=== PATIENT | male | born 1955 | race Caucasian/White ===

== ENCOUNTER 2016-11-08 06:35 | Day surgery (SDC) | payer BC ==
[2016-11-08] MEDS ORDERED: Sodium Chloride 0.9% 1,000 ML IV SCH (07:00)
[2016-11-08] MEDS ORDERED: Midazolam 1 MG/ML 2 ML SDV ONE (07:15)
[2016-11-08] MEDS ORDERED: fentaNYL 100 MCG/2 ML SDV ONE (07:15)
[2016-11-08] MEDS ORDERED: Propofol 200 MG/20 ML SDV ONE ×2 (07:15→08:21)
[2016-11-08 09:27] VITALS: BP 152/86
--- NOTE | 2016-11-11 07:31 | OR ---
DATE OF PROCEDURE: 11/08/2016 PROCEDURE: Colonoscopy. FINDINGS: 1. Ascending colon polyp, 5 mm, completely removed using cold biopsy forceps. 2. Transverse colon polyps #1, 5 mm, completely removed using cold biopsy forceps. 3. Ascending colon polyp #2, approximately 5 mm, completely removed using cold biopsy forceps. 4. Descending colon polyp, approximately 5 mm, completely removed using cold biopsy forceps. 5. Diverticulosis, mild, limited to the sigmoid colon. COMPLICATIONS: None. SAFETY DEPOSIT SUPERVISOR: None. PREOPERATIVE DIAGNOSIS: Screening colonoscopy. POSTOPERATIVE DIAGNOSIS: Screening colonoscopy. RISKS: Risks, benefits, alternatives, and limitations, including, but not limited to infection, bleeding, and perforation were explained to the patient and wished to proceed. ANESTHESIA: MAC. PROCEDURE IN DETAIL: The patient was placed in left lateral decubitus position. Digital rectal exam was performed without abnormality. The scope was introduced and advanced atraumatically to the cecal valve. The scope was brought back through the ascending, transverse, descending colon, and retroflexed. The aforementioned polyps were all identified and completely removed using cold biopsy forceps. The diverticulosis would be described as mild and limited to sigmoid colon only. There was no old or new blood. The patient required repositioning due to tortuous colon. The patient tolerated the procedure well. Bao Gusman MD /[id number]
== END 2016-11-08 09:40 | disposition home or self-care (01) ==
LOC: JP.SDS 06:35
PROVIDERS: ATTEND Surgery
DX: Z12.11 Encounter for screening for malignant neoplasm of colon (principal); D12.2 Benign neoplasm of ascending colon; D12.3 Benign neoplasm of transverse colon; D12.4 Benign neoplasm of descending colon; K57.30 Diverticulosis of large intestine without perforation or abscess without bleeding; Z88.8 Allergy status to other drugs, medicaments and biological substances; Z91.09 Other allergy status, other than to drugs and biological substances; I10 Essential (primary) hypertension; I25.10 Atherosclerotic heart disease of native coronary artery without angina pectoris; E03.9 Hypothyroidism, unspecified; E11.9 Type 2 diabetes mellitus without complications; Z79.899 Other long term (current) drug therapy
CPT/HCPCS: 45380; J2250; J2704; J3010; J7040; 88305

== ENCOUNTER 2017-10-31 07:49 | Day surgery (SDC) | payer BC ==
[2017-10-31] MEDS ORDERED: Lactated Ringers 1,000 ML IV SCH ×2 (08:05→08:10)
[2017-10-31] MEDS ORDERED: fentaNYL 100 MCG/2 ML SDV ONE (09:20)
[2017-10-31] MEDS ORDERED: Midazolam 1 MG/ML 2 ML SDV ONE (09:20)
[2017-10-31] MEDS ORDERED: Propofol 200 MG/20 ML SDV ONE ×2 (09:20→10:17)
[2017-10-31 11:26] VITALS: BP 138/82
--- NOTE | 2017-10-31 13:29 | OR ---
DATE OF PROCEDURE: 10/31/2017 PREOPERATIVE DIAGNOSIS: History of multiple tubular adenomas. POSTOPERATIVE DIAGNOSES: Diverticulosis, 4 colon polyps removed and sent to the laboratory as 3 specimens, and history of tubular adenomas. PROCEDURES: Colonoscopy to the cecum with biopsy resection and snare cautery polypectomy. SURGEON: Maxime Em MD ANESTHESIA: IV anesthesia with monitored anesthesia care. INDICATION: This 62-year-old white male is referred for a colonoscopy because of a history of tubular adenomas. He had multiple tubular adenomas removed about a year ago. I counseled him for the procedure, including risks and alternatives, and he gave his informed consent to proceed. DESCRIPTION OF PROCEDURE: The patient was placed in the left lateral decubitus position. IV anesthesia was administered by the Anesthesia service. Time-out was held. A rectal exam was performed, which was unremarkable. The flexible video Olympus colonoscope was introduced through his anus, up his rectum, and out his colon, all the way to the cecum. En route, we saw a few scattered left-sided diverticula. There was no bleeding or inflammation associated with them. En route to the cecum, we saw a small polyp in the transverse colon, which was removed with the biopsy forceps. In the proximal transverse colon, we saw a larger one, which was initially biopsied. It was too large to remove using this technique, so a snare was passed about its base. It was elevated up away from the bowel wall and amputated as electrocautery was applied. Once the cecum was reached, the scope was slowly withdrawn, examining the mucosa throughout. In the area of the hepatic flexure, we encountered 2 polyps near each other. One was removed with the biopsy forceps and the other with the snare. The scope was withdrawn with no additional lesions noted. The scope was retroflexed with the distal rectum appearing unremarkable. The scope was straightened and removed. He tolerated the procedure well. Maxime Em MD /[id number]
== END 2017-10-31 11:35 | disposition home or self-care (01) ==
LOC: JP.SDS 07:49
PROVIDERS: ATTEND Surgery
DX: Z12.11 Encounter for screening for malignant neoplasm of colon (principal); D12.3 Benign neoplasm of transverse colon; K57.30 Diverticulosis of large intestine without perforation or abscess without bleeding; E11.9 Type 2 diabetes mellitus without complications; Z85.038 Personal history of other malignant neoplasm of large intestine; Z91.09 Other allergy status, other than to drugs and biological substances
CPT/HCPCS: 45380; 45385; J2250; J2704; J3010; J7120; 88305

== ENCOUNTER 2018-10-16 07:37 | Day surgery (SDC) | payer BC ==
[2018-10-16] MEDS ORDERED: Lactated Ringers 1,000 ML IV SCH (08:15)
[2018-10-16] MEDS ORDERED: Midazolam 1 MG/ML 2 ML SDV ONE (08:47)
[2018-10-16] MEDS ORDERED: Propofol 200 MG/20 ML SDV ONE ×2 (08:47→09:55)
[2018-10-16] MEDS ORDERED: fentaNYL 100 MCG/2 ML SDV ONE (08:47)
[2018-10-16 10:55] VITALS: BP 131/78
--- NOTE | 2018-10-16 15:53 | OR ---
DATE OF PROCEDURE: 10/16/2018 PREOPERATIVE DIAGNOSIS: History of adenomatous colon polyps. POSTOPERATIVE DIAGNOSES: Diverticulosis, 3 small colon polyps, 25 cm distal transverse colon and 60 cm, history of adenomatous polyps. PROCEDURE PERFORMED: Colonoscopy to the cecum with biopsy resection of 3 small colon polyps at 25 cm from the anal verge, distal transverse colon and 60 cm from anal verge. ANESTHESIA: IV anesthesia with monitored anesthesia care. INDICATIONS: This 63-year-old white male is referred for a colonoscopy because of history of adenomatous colon polyps. His last colonoscopic exam was done about a year ago. I counseled him for the procedure including risks and alternatives, and he gave his informed consent to proceed. DESCRIPTION OF PROCEDURE: The patient was placed in the left lateral decubitus position. IV anesthesia was administered by the Anesthesia Service. Time-out was held. A rectal exam was performed which was unremarkable. The flexible video Olympus colonoscope was introduced through his anus, up his rectum, and out his colon all way to the cecum. En route, at 25 cm from the anal verge, we saw a small polyp which was removed with the biopsy forceps. Additionally, en route in the distal transverse colon, another small polyp was seen which was removed with the biopsy forceps. Once the cecum was reached, the scope was slowly withdrawn examining the mucosa throughout. In the left of the sigmoid colon areas, we saw a few scattered diverticula. At 60 cm from the anal verge, we encountered another small polyp which was removed with the biopsy forceps. The scope was brought back into the rectum where it was retroflexed. The distal rectum appeared unremarkable. The scope was straightened and removed. He tolerated the procedure well. Maxime Em MD /[id number]
--- OUTSIDE RECORDS SUMMARY | 2018-10-20 14:10 | XMSREPORT | Referral Summary ---
:1955 Author Organization [facility] Address [address] [address] Care Team Providers Name Role Phone Tito Dailey PA-C Primary Care Provider Reason for Referral Office Visit (Routine) Status Reason Specialty Diagnoses / Referred By Referred To Procedures Contact Contact Authorized Diagnoses Screening for colorectal cancer Tito Dailey, [facility] [address] [phone] Phone: Office Visit (Routine) Status Reason Specialty Diagnoses / Referred By Referred To Procedures Contact Contact New Request Diagnoses Type 2 diabetes mellitus with diabetic polyneuropathy, with long-term current use of insulin (HCC) Tito Dailey, Procedures CONTINUE CURRENT WEIGHT MGMT TREATMENT PLAN [place] [address] [place] [address] Reason for Visit Reason Comments Diabetes ACO Diagnosis Review Encounter Details Date Type Department Care Team Description 10/01/2018 Office Visit [facility] Tito Dailey, Type 2 diabetes mellitus with diabetic polyneuropathy, with long-term current use of insulin (HCC) (Primary Dx); [facility] Essential hypertension; [facility] [address] [facility] Hypothyroidism, unspecified type; [address] [place], [place] Screening for colorectal cancer [place], [place] [phone] Allergies Active Allergy Reactions Severity Noted Date Comments Povidone Iodine 11/29/2011 Does not think it is betadine, with shoulder thought more the tape. Adhesive Tape RASH 05/23/2011 documented as of this encounter (statuses as of 10/20/2018) Medications Medication Sig Dispensed Refills Start Date End Date Status Misc. Devices Supply 200 Each 6 12/13/2016 Active MiscIndications: Type requested: BD 2 diabetes mellitus Ultra Fine 31 with diabetic gauge needles neuropathy, with 8 mm. long-term current use Diagnosis: of insulin ([facility]) Diabetes Mellitus. Length of need: 99 years. NOVOLOG FLEXPEN 100 INJECT 4 UNITS 15 mL 2 01/12/2018 Active UNIT/ML pen UNDER THE SKIN injectionIndications: IN THE Nephropathy due to MORNING, 5 secondary diabetes UNITS AT NOON, ([facility]), Type 2 AND 6 UNITS IN diabetes mellitus THE EVENING with diabetic neuropathy, with long-term current use of insulin ([facility]) NIFEdipine CR osmotic TAKE 1 TABLET 90 Tab 2 02/25/2018 Active (PROCARDIA XL) 30 MG BY MOUTH EVERY 24 hour tablet DAY cyclobenzaprine TAKE 1 TABLET 90 Tab 3 08/06/2018 Active (FLEXERIL) 10 MG BY MOUTH tabletIndications: EVERYDAY AT Strain of neck BEDTIME muscle, initial encounter, Painful arc syndrome of left shoulder, Degeneration of lumbar intervertebral disc levothyroxine TAKE 1/2 45 Tab 0 09/10/2018 Active (SYNTHROID) 125 MCG TABLET BY tabletIndications: MOUTH EVERY Hypothyroidism, DAY unspecified type simvastatin (ZOCOR) TAKE 1 TABLET 90 Tab 2 09/08/2018 Active 40 MG BY MOUTH EVERY tabletIndications: EVENING. Dyslipidemia fosinopril (MONOPRIL) Take 1 Tab by 90 Tab 2 09/08/2018 Active 40 MG mouth one time tabletIndications: a day. Essential hypertension metFORMIN Take 1 Tab by 180 Tab 0 09/20/2018 Active (GLUCOPHAGE) 1000 MG mouth two tabletIndications: times a day. Type 2 diabetes WITH FOOD mellitus with diabetic neuropathy, with long-term current use of insulin ([facility]), Nephropathy due to secondary diabetes ([facility]) ONETOUCH USE TO TEST 200 Strip 0 09/29/2018 Active VERIOIndications: BLOOD GLUCOSE Type 2 diabetes TWO TIMES A mellitus with DAY. diabetic neuropathy, with long-term current use of insulin ([facility]) insulin detemir Inject 14 30 mL 0 10/01/2018 Active (LEVEMIR FLEXTOUCH) Units under 100 UNIT/ML pen the skin at injection bedtime. ammonium lactate Apply 1 Bottle 11 04/11/2015 Discontinued (LAC-HYDRIN) 12 % topically two 9 LotionIndications: times a day. Diabetes mellitus due to underlying condition with diabetic neuropathy ([facility]), Callus NIFEdipine SR (ADALAT Take 1 Tab by 90 Tab 3 12/13/2016 Discontinued CC) 30 MG 24 hour mouth one time 9 tablet a day. SWALLOW WHOLE. DO NOT CRUSH OR CHEW FREESTYLE Check blood 50 Each 10 12/13/2016 Discontinued LITEIndications: Type sugars 1-2 9 2 diabetes mellitus times daily as with diabetic needed. neuropathy, with long-term current use of insulin ([facility]) glucose blood Patient tests 100 Each 1 08/29/2017 Discontinued testIndications: Type 1-2 times 9 2 diabetes mellitus daily. One with diabetic Touch strips. polyneuropathy, with long-term current use of insulin ([facility]) LEVEMIR FLEXTOUCH 100 INJECT 27 30 mL 0 03/20/2018 Discontinued UNIT/ML pen UNITS UNDER 9 injectionIndications: THE SKIN AT Type 2 diabetes BEDTIME. mellitus with diabetic neuropathy, with long-term current use of insulin ([facility]) documented as of this encounter (statuses as of 10/20/2018) Active Problems Problem Noted Date Type 2 diabetes mellitus with diabetic polyneuropathy 02/26/2016 Painful arc syndrome of left shoulder 01/23/2016 S/P Bilateral L5-S1 diskectomy on 08/09/2014 08/31/2014 Herniated nucleus pulposus, lumbar 08/01/2014 Degeneration of lumbar intervertebral disc 08/01/2014 Postlaminectomy syndrome, lumbar region 08/01/2014 Episodic recurrent vertigo 01/02/2012 Overview: Etiology unclear, no obvious trigger, w/u so far benign Impingement syndrome of right shoulder 10/22/2011 Diabetes mellitus with neuropathy 05/23/2011 HTN (hypertension) 05/23/2011 Dyslipidemia 05/23/2011 Low back pain 05/23/2011 Foot drop s/p back surgery, left 05/23/2011 Osteoarthritis of right shoulder region 05/23/2011 Peripheral neuropathy 05/23/2011 Environmental allergies 05/23/2011 Hypothyroidism 05/22/2011 documented as of this encounter (statuses as of 10/20/2018) Resolved Problems Problem Noted Date Resolved Date Varicose vein of legs, bilat 05/23/2011 04/08/2013 Carpal tunnel syndrome on both sides 05/23/2011 04/08/2013 Tinnitus 05/23/2011 04/08/2013 Heart palpitations 05/23/2011 04/08/2013 documented as of this encounter (statuses as of 10/20/2018) Immunizations Name Dates Previously Given Next Due Influenza Quad Preservative Free 05/21/2018, 06/13/2017, 06/17/2016, 05/25/2015, 05/19/2013 Influenza Seasonal Inj A,B 06/07/2014, 05/15/2011, 05/23/2010 Influenza Seasonal Inj A,B Preservative 06/02/2012 Free Influenza Unspecified Formulation 06/02/2012, 05/15/2011, 05/23/2010 METHYLPREDNISOLONE ACETATE 07/19/2015, 02/08/2015 Pneumococcal Conjugate, (Prevnar)13-valent 08/29/2008 Pneumococcal Conjugate, (Prevnar)7-valent 09/25/2004 Pneumovax 23 12/26/2009, 08/29/2008, 09/25/2004 TD >7yrs With Preservative 09/25/2004 TRIAMCINOLONE ACETONIDE 06/18/2011 Tdap >7 years 02/21/2015 Tetanus (Plain) 09/25/2004 Zoster Zostavax (Shingles) 04/18/2015 documented as of this encounter Social History Tobacco Use Types Packs/Day Years Used Date Former Smoker Cigarettes 2 15 Quit: 12/21/1985 Smokeless Tobacco: Never Used Alcohol Use Drinks/Week oz/Week Comments No 0 Standard drinks or equivalent 0.0 Sex Assigned at Date Recorded Not on file Job Start Date Occupation Industry Not on file Not on file Not on file Travel History Travel Start Travel End No recent travel history available. documented as of this encounter Last Filed Vital Signs Vital Sign Reading Time Taken Blood Pressure 124/80 10/01/2018 8:18 AM [employer] Pulse 100 10/01/2018 8:18 AM [employer] Temperature 36.2 C (97.2 F) 10/01/2018 8:18 AM [employer] Respiratory Rate 18 10/01/2018 8:18 AM [employer] Oxygen Saturation 97% 10/01/2018 8:18 AM [employer] Inhaled Oxygen Concentration - - Weight 104.2 kg (229 lb 11.5 oz) 10/01/2018 8:18 AM [employer] Height 185.4 cm (6' 1") 10/01/2018 8:18 AM [employer] Body Mass Index 30.31 10/01/2018 8:18 AM [employer] documented in this encounter Functional Status Functional Status Response Date of Assessment Patient's Vision Adequate to Safely Complete Daily No 08/09/2014 Activities Patient's Memory Adequate to Safely Complete Daily No 08/09/2014 Activities Cognitive Status Response Date of Assessment Patient's Judgment Adequate to Safely Complete Daily No 08/09/2014 Activities documented as of this encounter Progress Notes Tito Dailey PA-C - 10/01/2018 8:30 AM CST ASSESSMENT/PLAN Showed Juliano the BMI and told this should be 25 or less and made suggestions as how to accomplish this . Estimated body mass index is 30.31 kg/m as calculated from the following: Height as of this encounter: 6' 1" (1.854 m). Weight as of this encounter: 229 lb 11.5 oz (104.2 kg). Weight Management / BMI follow-up plan:Dietary surveillance and counseling 1. (E11.42, Z79.4) Type 2 diabetes mellitus with diabetic polyneuropathy, with long-term current use of insulin (HCC) (primary encounter diagnosis) Plan: CONTINUE CURRENT WEIGHT MGMT TREATMENT PLAN - A1c is 8.2 today, was 6.8 six months ago. He has gained some weight and been a little less active over the winter. Weight is up 6 lbs from March. He will be more active in the spring and summer asweather improves. He has reduced his Levemir dose down to 14 units now (was on 27) at HS. Is also onnovolog at 4, 5, and 6 units with meals along with metformin 1000 mg PO bid. He checks BS multiple times daily. AM fasting has been around 90-175, 2 hr PP around 180. BMI is now 30. He walks daily 3-5miles normally but has needed to use treadmill in winter which he does not like. He denies any chestpain, palpitations, SOB, ABREU, PND, orthopnea, dizziness, light-headedness, syncope or peripheral edema. No change in his neuropathy, stable. He is on aspirin and statin. Good HTN control. Does have some albuminuria but is on ARB. - will continue on current medications, he will adjust his Levemir up by 1-2 units and continue to monitor his BS. He will work on increased activity and weight loss as the spring and summer come and will see him back in 6 months with repeat A1c. 2. (I10) Essential hypertension Plan: - stable, well controlled currently on fosinopril 40 mg PO once daily and nifedipine SR 30 mg once daily. BP is 124/80. Continue meds. 3. (E03.9) Hypothyroidism, unspecified type Plan: - previously stable on current dose of levothyroxine. TSH pending. 4. (Z12.11, Z12.12) Screening for colorectal cancer Plan: - last colonoscopy 10/31/17 with polyps, recommended recheck in [address] order today. CC/HPI Juliano Young is a 63 year old male seen today for a thorough evaluation of his medical problems and health maintenance review. A1c is 8.2 today, was 6.8 six months ago. He has gained some weight and been a little less active over the winter. Weight is up 6 lbs from March. He will be more activein the spring and summer as weather improves. He has reduced his Levemir dose down to 14 units now (was on 27) at HS. Is also on novolog at 4, 5, and 6 units with meals along with metformin 1000 mg PO bid. He checks BS multiple times daily. AM fasting has been around 90-175, 2 hr PP around 180. BMI is now 30. He walks daily 3-5 miles normally but has needed to use treadmill in winter which he does not like. He denies any chest pain, palpitations, SOB, ABREU, PND, orthopnea , dizziness, light-headedness, syncope or peripheral edema. No change in his neuropathy, stable. He is on aspirin and statin. Good HTN control. Does have some albuminuria but is on ARB. will continue on current medications, he will adjust his Levemir up by 1-2 units and continue to monitor his BS. He will work on increased activity and weight loss as the spring and summer come and will see him back in 6 months with repeat A1c. Annual eye exam? within 1 year. Caffeine use? minimal Tobacco use: does not smoke. ETOH? occasional Seat belt:Yes. Helmet: N/A Exercise yes - stays active but less in winter as has needed to use treadmill instead of walking outside. Weight up 6 lbs. Last colonoscopy 10/31/17 repeat in 1 year DM HPI: Current treatment includes diet, exercise, oral medications and insulin injections. Current monitoring regimen: home blood tests - multiple times daily Home blood sugar records: see HPI Last A1C: Lab Results Component Value Date HGA1C 8.2 10/01/2018 Diabetic complications: peripheral neuropathy Cardiovascular risk factors: diabetes mellitus ASA use: yes Diabetes optimally managed: no DM education within the past 12 months: no Willing to see primary special educator? yes - if needed Eye exam in last 12 months? yes - 12/13/18 Tobacco use at this time? no Past Medical History: Diagnosis Date Abnormal stress ECG with treadmill 12/26/08 ischemia pt treating with conservative methods Carpal tunnel syndrome on both sides 05/23/2011 Coronary artery disease 12/26/09 conservative management per pt Diabetes mellitus type 2, controlled (HCC) Hypercholesteremia Hypertension Osteoarthritis Rt Ac joint Rt shoulder Tinnitus 05/23/2011 Varicose vein of legs, bilat 05/23/2011 Venous insufficiency 02/13/09 Patient Active Problem List Diagnosis Hypothyroidism Diabetes mellitus with neuropathy (HCC) HTN (hypertension) Dyslipidemia Low back pain Foot drop s/p back surgery, left Osteoarthritis of right shoulder region Peripheral neuropathy Environmental allergies Impingement syndrome of right shoulder Episodic recurrent vertigo Herniated nucleus pulposus, lumbar Degeneration of lumbar intervertebral disc Postlaminectomy syndrome, lumbar region S/P Bilateral L5-S1 diskectomy on 08/09/2014 Painful arc syndrome of left shoulder Type 2 diabetes mellitus with diabetic polyneuropathy (HCC) Past Surgical History: Procedure Laterality Date ACROMIOPLASTY 08/27/11 BACK SURGERY residual drop foot CARDIAC CATHERIZATION ~ 2009 Dr. Espino, essentially normal CHOLECYSTECTOMY, OPEN COLONOSCOPY 11/09/2004 COLONOSCOPY,BIOPSY 10/17/2015 5 polyps, tubular adenomas, repeat in 1 year COLONOSCOPY,BIOPSY 11/08/2016 next colon due in one year per Dr. Gusman COLONOSCOPY,REMV LESN,SNARE 10/31/2017 repeat in [address] valencia LUMBAR DISC SURGERY Bilateral 08/09/2014 bilateral lumbar 5 / sacral 1 discectomy OTHER SURGICAL HISTORY 02/13/09 left great saphenous vein SHOULDER ARTHROSCOPY ~2008 left WRIST SURGERY right wrist fusion Current Outpatient Medications Medication Sig insulin detemir (LEVEMIR FLEXTOUCH) 100 UNIT/ML pen injection Inject 14 Units under the skin at bedtime. ONETOUCH VERIO USE TO TEST BLOOD GLUCOSE TWO TIMES A DAY. metFORMIN (GLUCOPHAGE) 1000 MG tablet Take 1 Tab by mouth two times a day. WITH FOOD levothyroxine (SYNTHROID) 125 MCG tablet TAKE 1/2 TABLET BY MOUTH EVERY DAY simvastatin (ZOCOR) 40 MG tablet TAKE 1 TABLET BY MOUTH EVERY EVENING. fosinopril (MONOPRIL) 40 MG tablet Take 1 Tab by mouth one time a day. cyclobenzaprine (FLEXERIL) 10 MG tablet TAKE 1 TABLET BY MOUTH EVERYDAY AT BEDTIME NIFEdipine CR osmotic (PROCARDIA XL) 30 MG 24 hour tablet TAKE 1 TABLET BY MOUTH EVERY DAY NOVOLOG FLEXPEN 100 UNIT/ML pen injection INJECT 4 UNITS UNDER THE SKIN IN THE MORNING, 5 UNITS AT NOON, AND 6 UNITS IN THE EVENING [facility] [place] [facility] [place] requested: BD Ultra Fine 31 gauge needles 8 mm. Diagnosis: Diabetes Mellitus. Length of need: 99 years. No current facility-administered medications for this visit. ALLERGIES Betadine [povidone iodine] and Tape [adhesive tape] HABITS/LIFESTYLE Social History Tobacco Use Smoking status: Former Smoker Packs/day: 2.00 Years: 15.00 Pack years: 30.00 Types: Cigarettes Last attempt to quit: 12/21/1985 Years since quittin.8 Smokeless tobacco: Never Used Substance Use Topics Alcohol use: No Alcohol/week: 0.0 oz Family History Problem Relation Age of Onset Cancer Mother lung Diabetes Sister Cancer Brother kidney Diabetes Brother REVIEW OF SYSTEMS Constitutional: no unintentional weight loss, fevers, shaking chills. Appetite & amp; energy as usual. Skin: no rashes or lesions of concern EYES: no blurry vision, double vision, recent significant visual changes. Last dilated eye exam: 12/13/18 HEENT: no recent cold, cough, runny nose, stuffy nose, sore throat, sinus problems. No new auditory or visual complaints. Resp:no cough, or changes to shortness of breath. CV: No chest pain or palpitations GI:no dysphagia, nausea, vomiting, change in bowel habits, bloody stools, melena , black tarry stools. : no change in urination or blood in urine. Musculoskeletal: no joint pain or swelling NEUROLOGIC: no headache, dizziness, light-headedness. No tingling, numbness in extremities. Endocrine: no polyuria, polydipsia, heat or cold intolerance PHYSICAL EXAM Vitals: 10/01/18 0818 BP: 124/80 Pulse: 100 Temp: 36.2 C (97.2 F) Resp: 18 Height: 6' 1" (1.854 m) Weight: 229 lb 11.5 oz (104.2 kg) SpO2: 97% BMI (Calculated): 30.31 Wt Readings from Last 3 Encounters: 10/01/18 229 lb 11.5 oz (104.2 kg) 08/28/18 235 lb 14.3 oz (107 kg) 04/03/18 223 lb 8.7 oz (101.4 kg) Lab Results Component Value Date HGA1C 8.2 10/01/2018 Lab Results Component Value Date LDLC 104 03/16/2018 Lab Results Component Value Date HDL 44 03/16/2018 Lab Results Component Value Date CHOL 171 03/16/2018 Lab Results Component Value Date TRIG 115 03/16/2018 Lab Results Component Value Date ALBCR 664 03/16/2018 Hemoglobin A1c (%) Date Value 10/01/2018 8.2 (H) 03/16/2018 6.8 (H) 09/19/2017 8.0 (H) 06/13/2017 9.8 (H) BP Readings from Last 3 Encounters: 10/01/18 124/80 08/28/18 128/82 04/03/18 138/80 Visit date not found General Appearance: Alert & oriented x 3, well groomed Lungs: normal respiration, clear to auscultation and no rales or rhonchi Heart: regular rhythm, normal heart sounds, no murmur and no S3-S4 Extremity: no edema, foot pulses intact TEST RESULTS: ALLIED HEALTH/NURSE VISIT on 10/01/2018 Component Date Value Hemoglobin A1c 10/01/2018 8.2* Estimated Average Glucose 10/01/2018 189 Immunization History Administered Date(s) Administered Influenza Quad Preservative Free 05/19/2013, 05/25/2015, 06/17/2016, 2016, 05/21/2018 Influenza Seasonal Inj A,B 05/23/2010, 05/15/2011, 06/07/2014 Influenza Seasonal Inj A,B Preservative Free 06/02/2012 Influenza Unspecified Formulation 05/23/2010, 05/15/2011, 06/02/2012 METHYLPREDNISOLONE ACETATE 02/08/2015, 07/19/2015 Pneumococcal Conjugate, (Prevnar)13-valent 08/29/2008 Pneumococcal Conjugate, (Prevnar)7-valent 09/25/2004 Pneumovax 23 09/25/2004, 08/29/2008, 12/26/2009 TD >7yrs With Preservative 09/25/2004 TRIAMCINOLONE ACETONIDE 06/18/2011 Tdap >7 years 02/21/2015 Tetanus (Plain) 09/25/2004 Zoster Zostavax (Shingles) 04/18/2015 Flu annually? yes Td up to date? yes Shingrix? No, but had zostavax Pneumonia? yes - both Weight Management / BMI follow-up plan: Dietary surveillance and counseling. documented in this encounter Plan of Treatment Date Type Specialty Care Team Description 03/19/2019 Appointment Laboratory Lab, [address] [phone] 03/25/2019 Appointment Internal Medicine Tito Dailey PA-C [address] [place] [address] Name Priority Associated Diagnoses Order Schedule COMPREHENSIVE METABOLIC Routine Type 2 diabetes mellitus Expected: 2018 PANEL with diabetic (Approximate), polyneuropathy, with Expires: 04/29/2019 long-term current use of insulin (HCC) Essential hypertension HEMOGRAM/DIFFERENTIAL Routine Type 2 diabetes mellitus Expected: 03/16/2019 with diabetic (Approximate), polyneuropathy, with Expires: 04/29/2019 long-term current use of insulin (HCC) Essential hypertension LIPID PANEL Routine Type 2 diabetes mellitus Expected: 03/16/2019 with diabetic (Approximate), polyneuropathy, with Expires: 04/29/2019 long-term current use of insulin (HCC) Essential hypertension HEMOGLOBIN A1C Routine Type 2 diabetes mellitus Expected: 03/16/2019 with diabetic (Approximate), polyneuropathy, with Expires: 04/29/2019 long-term current use of insulin (HCC) MICROALBUMIN, RANDOM URINE Routine Type 2 diabetes mellitus Expected: 2018 with diabetic (Approximate), polyneuropathy, with Expires: 04/29/2019 long-term current use of insulin (HCC) Name Priority Associated Diagnoses Order Schedule SCHEDULE ENDOSCOPY PROCEDURE Routine Screening for colorectal Ordered: 10/01 [facility] cancer documented as of this encounter Visit Diagnoses Diagnosis Type 2 diabetes mellitus with diabetic polyneuropathy, with long-term current use of insulin (HCC) - Primary Essential hypertension Unspecified essential hypertension Hypothyroidism, unspecified type Screening for colorectal cancer Special screening for malignant neoplasms, colon documented in this encounter Insurance Payer Benefit Plan / Subscriber ID Effective Phone Address Type Group Dates [place] x[place] 2017-[facility] PRIME Guarantor Name Account Type Relation to Date of Phone Billing Patient Address Sweta Younglyn Max Personal/Family 05/27/1956 [id number]) [place] [id number] documented as of this encounter Advance Directives For more information, please contact:[address] [address] Code Status Date Activated Date Inactivated Comments Full Code 08/09/2014 5:35 AM 08/10/2014 4:18 PM
== END 2018-10-16 11:30 | disposition home or self-care (01) ==
LOC: JP.SDS 07:37
PROVIDERS: ATTEND Surgery
DX: Z09 Encounter for follow-up examination after completed treatment for conditions other than malignant neoplasm (principal); D12.3 Benign neoplasm of transverse colon; D12.4 Benign neoplasm of descending colon; D12.5 Benign neoplasm of sigmoid colon; K57.30 Diverticulosis of large intestine without perforation or abscess without bleeding; I10 Essential (primary) hypertension; E11.9 Type 2 diabetes mellitus without complications; E78.5 Hyperlipidemia, unspecified; Z86.010 Personal history of colon polyps; Z91.048 Other nonmedicinal substance allergy status; Z88.8 Allergy status to other drugs, medicaments and biological substances
CPT/HCPCS: 45380; J2250; J2704; J3010; 88305